=== PATIENT | female | born 1980 | race Hispanic/Latino ===

== ENCOUNTER 2024-06-19 23:54 | Inpatient (IN) | payer BC ==
[2024-06-20] MEDS ORDERED: Ondansetron PF 4 MG/2 ML Vial ONE (00:04)
[2024-06-20] MEDS ORDERED: Morphine 4 MG/ML VIAL ONE (00:04)
[2024-06-20 00:26] LABS: Hematocrit 42.4 % (36.0-47.0); Hemoglobin 14.1 g/dL (12.0-16.0); Mean Corpuscular HGB CONC 33.3 g/dL (32.0-36.0); Mean Corpuscular Hemoglobin 26.3 pg (27.0-31.0); Mean Platelet Volume 8.5 fL (7.4-10.4); Platelet Count 712 10x3/uL (130-400); RBC Distribution Width 13.9 % (11.5-14.5); Red Blood Cell (RBC) Count 5.37 mill/uL (4.20-5.40)
[2024-06-20 00:37] LABS: Prothrombin Time 13.4 sec (12.0-14.7)
[2024-06-20 00:38] LABS: PTT 89.4 sec (22.9-36.1)
[2024-06-20 00:43] LABS: ALT (SGPT) 30 U/L (8-55); AST (SGOT) 22 U/L (5-34); Albumin 3.9 g/dL (3.5-5.0); Alkaline Phosphatase 83 U/L (40-110); Anion Gap 18 mmol/L (10-20); BUN (Urea Nitrogen) 13 mg/dL (7.0-18.7); Bilirubin, Total 0.5 mg/dL (0.2-1.2); Calc. Creatinine Clearance 0 mL/min (70-130); Calcium 9.1 mg/dL (7.8-10.44); Carbon Dioxide 17 mmol/L (22-29); Chloride 106 mmol/L (98-107); Estimated GFR 95; Globulin 3.7 g/dL (2.4-3.5); Glucose 135 mg/dL (70-105); Protein, Total 7.6 g/dL (6.0-8.3); Sodium 137 mmol/L (136-145)
[2024-06-20 00:47] LABS: Lymphocytes 19 % (21-51); Monocytes 4 % (0-10); Neutrophil 70 % (42-75); Platelet Adequacy Comment Platelets Increased; Reactive Lymphocytes 7 % (0-10)
[2024-06-20 00:59] LABS: Troponin I 0.379 ng/mL (< 0.028)
[2024-06-20] MEDS ORDERED: Ipratropium/Albuterol 3 ML NEB NEB PRN (03:35)
[2024-06-20] MEDS: Ondansetron PF 4 MG/2 ML Vial IVP PRN (03:47)
[2024-06-20] MEDS: Ketorolac Tromethamine 30 MG (1 mL) VIAL IVP SCH (03:47)
[2024-06-20 04:15] LABS: Cardiac Risk 2.9 (Less than 4.5); Cholesterol 160 mg/dl (< 200 Desired); HDL Cholesterol 55 mg/dL (>60 Neg Risk); LDL Cholesterol, Calculated 84 mg/dL; Magnesium 2.1 mg/dL (1.6-2.6); Triglycerides 107 mg/dL (Less than 150)
[2024-06-20 04:56] LABS: Hemoglobin A1c 5.7 % (4.0-6.0)
[2024-06-20] MEDS: Sodium Chloride 0.9% 1,000 ML IV SCH (04:57)
[2024-06-20 05:00] VITALS: BMI 30.4
[2024-06-20 06:09] LABS: ALT (SGPT) 39 U/L (8-55); AST (SGOT) 115 U/L (5-34); Albumin 3.3 g/dL (3.5-5.0); Alkaline Phosphatase 67 U/L (40-110); Anion Gap 13 mmol/L (10-20); BUN (Urea Nitrogen) 13 mg/dL (7.0-18.7); Bilirubin, Total 0.5 mg/dL (0.2-1.2); Calc. Creatinine Clearance 115 mL/min (70-130); Calcium 8.1 mg/dL (7.8-10.44); Carbon Dioxide 21 mmol/L (22-29); Chloride 107 mmol/L (98-107); Estimated GFR 106; Glucose 101 mg/dL (70-105); Potassium 3.4 mmol/L (3.5-5.1); Protein, Total 6.3 g/dL (6.0-8.3); Sodium 138 mmol/L (136-145)
[2024-06-20] MEDS: Acetaminophen 325 MG TAB PO PRN (06:24)
[2024-06-20] MEDS: fentaNYL 50 mcg/mL 1 mL Vial SLOW IVP PRN (06:25)
[2024-06-20] MEDS: Nitroglycerin 2% Ointment 1 INCH/1 GM Packet TOP SCH (06:27)
[2024-06-20] MEDS: Famotidine 20 MG TAB PO SCH (08:59)
[2024-06-20] MEDS: Aspirin 81 mg Enteric Coated Tablet PO SCH (10:38)
[2024-06-20] MEDS ORDERED: cloNIDine 0.1 MG TAB PO PRN (10:42)
[2024-06-20] MEDS: Losartan 25 MG TAB PO SCH ×3 (11:15→20:10)
[2024-06-20] MEDS ORDERED: Iopamidol 370 76% 100 ML VIAL ONE (11:39)
[2024-06-20] MEDS: Aspirin/APAP/Caffeine Tab (Excedrin Migraine) PO SCH (21:47)
[2024-06-21] MEDS: Aspirin 81 mg Enteric Coated Tablet PO SCH (07:57)
[2024-06-21] MEDS: Aspirin/APAP/Caffeine Tab (Excedrin Migraine) PO PRN (10:31)
[2024-06-21] MEDS: fentaNYL 50 mcg/mL 1 mL Vial SLOW IVP SCH (10:52)
[2024-06-21] MEDS: Carvedilol 6.25 MG TAB PO SCH (12:50)
[2024-06-21] MEDS: ALPRAZolam 0.25 MG TAB PO PRN (13:40)
[2024-06-21] MEDS ORDERED: Carvedilol 6.25 MG TAB PO SCH (17:00)
[2024-06-22] MEDS ORDERED: Carvedilol 6.25 MG TAB PO SCH (08:00)
[2024-06-22] MEDS: Carvedilol 3.125 MG TAB PO SCH (08:45)
[2024-06-22] MEDS: Enoxaparin 30 MG (0.3 mL) SYRINGE SC SCH (08:45)
[2024-06-22] MEDS: Furosemide 20 MG (2 mL) VIAL SLOW IVP SCH (09:39)
[2024-06-22] MEDS: Potassium Chloride 20 MEQ TAB PO SCH (09:39)
[2024-06-22] MEDS: Spironolactone 25 MG TAB PO SCH (14:34)
[2024-06-23 05:01] LABS: Anion Gap 14 mmol/L (10-20); BUN (Urea Nitrogen) 15 mg/dL (7.0-18.7); Calc. Creatinine Clearance 99 mL/min (70-130); Calcium 8.1 mg/dL (7.8-10.44); Carbon Dioxide 20 mmol/L (22-29); Chloride 107 mmol/L (98-107); Estimated GFR 88; Glucose 130 mg/dL (70-105); Magnesium 2.2 mg/dL (1.6-2.6); Potassium 3.7 mmol/L (3.5-5.1); Sodium 137 mmol/L (136-145)
[2024-06-23 06:16] LABS: #Basophils 0.07 10x3/uL (0.0-0.2); %Basophils 0.6 % (0.0-1.0); %Lymphocytes 30.1 % (21.0-51.0); %Monocytes 5.8 % (0.0-10.0); %Neutrophils 58.2 % (42.0-75.0); Hematocrit 37.9 % (36.0-47.0); Hemoglobin 12.4 g/dL (12.0-16.0); Mean Corpuscular HGB CONC 32.7 g/dL (32.0-36.0); Mean Corpuscular Hemoglobin 26.6 pg (27.0-31.0); Mean Corpuscular Volume 81.2 fL (78.0-98.0); Mean Platelet Volume 8.7 fL (7.4-10.4); Platelet Count 519 10x3/uL (130-400); Red Blood Cell (RBC) Count 4.67 mill/uL (4.20-5.40)
[2024-06-23] MEDS: Spironolactone 25 MG TAB PO SCH (08:44)
[2024-06-23] MEDS ORDERED: FLU (Fluarix Triv) TS24-25(6MOS UP)/PF 45 MCG/0.5 ML Syringe IM ONE (09:00)
[2024-06-23] MEDS: Potassium Chloride 20 MEQ TAB PO SCH (09:36)
[2024-06-23] MEDS ORDERED: Nitroglycerin 0.4 MG TAB (25 Tab Bottle) SL PRN (11:01)
[2024-06-23 16:32] VITALS: BP 117/61; TEMP 98.3
[2024-06-23] MEDS ORDERED: Atorvastatin Calcium 20 MG TAB PO SCH (21:00)
[2024-06-24] MEDS ORDERED: Losartan 25 MG TAB PO SCH (09:00)
[2024-06-24 15:02] LABS: ANA Symphony (Qualitative) Negative (Negative); ANA Symphony (Quantitative) 0.3 Ratio (< 0.7 Negative); dsDNA IgG Antibody 2.2 IU/mL (<10 Negative)
[2024-06-24] MEDS ORDERED: Rosuvastatin 10 MG TAB PO SCH (21:00)
== END 2024-06-23 16:34 | disposition home or self-care (01) | DRG 280 ==
LOC: ERS 23:54 → SDC/OP 06-20 00:11 → CCU 06-20 00:46 → 2NO 06-21 15:21
PROVIDERS: ADMIT Internal Medicine Cardiovascular Disease; ATTEND Internal Medicine Cardiovascular Disease
PROC: 4A023N7 Measurement of Cardiac Sampling and Pressure, Left Heart, Percutaneous Approach (ICD-10-PCS; principal; 2024-06-20)
PROC: B2151ZZ Fluoroscopy of Left Heart using Low Osmolar Contrast (ICD-10-PCS; 2024-06-20)
PROC: B2111ZZ Fluoroscopy of Multiple Coronary Arteries using Low Osmolar Contrast (ICD-10-PCS; 2024-06-20)
DX: I21.09 ST elevation (STEMI) myocardial infarction involving other coronary artery of anterior wall (principal); I25.42 Coronary artery dissection; E87.20 Acidosis, unspecified; Z79.899 Other long term (current) drug therapy; Z90.49 Acquired absence of other specified parts of digestive tract; G43.909 Migraine, unspecified, not intractable, without status migrainosus; I95.9 Hypotension, unspecified
CPT/HCPCS: 36415; 71045; 80048; 80053; 80061; 83036; 83735; 83880; 84145; 84443; 84484; 85025; 85347; 85610; 85730; 86038; 86141; 86225; 92941; 93005; 93010; 93458; 96374; 96375; 99152; 99153; C1769; C1887; C1894; C9606; J1650; J1885; J1940; J2272; J2405; J3010; J7030; Q9967